=== PATIENT | female | born 1995 | race Caucasian/White ===

== ENCOUNTER 2017-08-24 20:36 | Emergency (ER) | payer BC, SELFPAY ==
[2017-08-24 20:37] VITALS: BP 128/73; PULSE 122; RESP 18; TEMP 37.2; O2SAT 98; BMI 22.0
--- NOTE | 2017-08-24 21:52 | ED.RN ---
PT STATED SHE NO LONGER BELIEVED SHE NEEDED TO BE SEEN IN THE ER FOR HER SYMPTOMS. SHE STATED SHE WOULD FOLLOW UP WITH HER DOCTOR. PT ENCOURAGED TO COME BACK WITH WORSENING SYMPTOMS
== END 2017-08-24 21:55 | disposition left against medical advice (07) ==
LOC: ED 23:13
PROVIDERS: Emergency Provider Emergency Medicine; Family Provider Pediatrics
DX: R69 Illness, unspecified (principal)

== ENCOUNTER 2019-03-06 22:32 | Emergency (ER) | payer MEDICAID, SELFPAY ==
[2019-03-06 22:33] VITALS: BP 158/80; PULSE 84; RESP 16; TEMP 36.6; O2SAT 100; BMI 27.5
--- NOTE | 2019-03-06 22:46 | ED.VISSUMM ---
- ER Visit Summary Date of Service: 03/06/19 Chief Complaint: Bilateral wrist pain History of Present Illness: The patient is a 23 F who has bilateral wrist pain. She has had this for 2 weeks. Is worse when she wakes up in the morning. 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 She does get some paresthesias when she moves her wrist certain ways. Denies any trauma or falls. No history of carpal tunnel syndrome. Physical Examination: Vital signs reviewed. Bilateral wrist exam reveals no tenderness. She has full range of motion. She does have a positive Phalen's and Tinel sign. No sensory deficits at this time. Test Results: None performed Emergency Department Course and Treatment: Patient appears to have carpal tunnel of her bilateral wrist. She will take NSAIDs for pain. I will give her a prescription for bilateral wrist splints to wear at night. She will be given orthopedic follow-up. Treatment Plan: [] Disposition: Discharge Impression: Bilateral carpal tunnel syndrome This note was generated with [employer] dictation software. It may contain incorrect words, spelling, and punctuation that were not noted in review of the chart prior to signing ED Disposition - Plan for ED Patient: Referrals: NOT,DEFINED [Primary Care Provider] -
--- NOTE | 2019-03-06 22:47 | DCINST.ED_ITS ---
ED Disposition - Plan for ED Patient: Disposition: Home or Assisted Living Instructions: What Is Carpal Tunnel Syndrome (CTS)? 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
== END 2019-03-06 23:05 | disposition home or self-care (01) ==
LOC: ED 22:58
PROVIDERS: Emergency Provider Emergency Medicine; Family Provider Family Medicine; PCP Family Medicine
DX: G56.03 Carpal tunnel syndrome, bilateral upper limbs (principal)
CPT/HCPCS: 99282

== ENCOUNTER 2022-07-14 00:13 | Outpatient (CLI) | payer MEDICAID, SELFPAY ==
[2022-07-14 00:22] VITALS: BMI 36.2
[2022-07-14 00:29] VITALS: BP 113/69; PULSE 86
[2022-07-14 00:30] VITALS: TEMP 37.1
--- NOTE | 2022-07-14 06:25 | OB.TRI.NOTE ---
HPI - General General Date of Admission: 07/14/22 Date of Service: 07/14/22 Chief Complaint: contractions HPI Narrative MONA NARAYAN, is a 26 F who presents complaining of contractions. They increased after she was in the office today. She denies any vaginal bleeding or leaking of fluid. Maternal Data Information Final TOBI: 08/03/22 Gestational age: 37 1/7 [facility] Medical History (Updated 07/14/22 @ 06:[address] Leigha Simpson MD) Anxiety and depression Cardiology follow-up encounter Congenital infundibular pulmonic stenosis Dietary restriction Former smoker Gestational diabetes History of echocardiogram History of irregular heartbeat Wears glasses Home Medications ferrous sulfate 325 mg (65 mg iron) tablet 325 mg PO DAILY 07/05/22 [History Last Taken 07/13/22 09:30] magnesium oxide 420 mg tablet 420 mg PO DAILY 07/05/22 [History Last Taken 07/13/22 09:30] prenat.vits,smita,dso-gqlb-ojzmf 1 tab PO DAILY 07/06/22 [History Last Taken 07/13/22 09:30] pyridoxine (vitamin B6) 50 mg tablet (Vitamin B-6) 50 mg PO DAILY 07/06/22 [History Last Taken 07/13/22 09:30] Allergy/AdvReac Type Severity Reaction Status Date / Time sertraline [From Zoloft] Allergy Unknown Mental Verified 07/14/22 00:25 status change. amoxicillin Allergy Unknown Verified 07/14/22 00:25 Social History (Updated 07/05/22 @ 10:13 by Marielena Mabry) Smoking Status: Former smoker how long ago did patient quit smokin alcohol intake: never substance use type: marijuana NST FHR Rate Baby A Baseline: 145 Variability:: Moderate Accelerations:: 15 x 15 Decelerations:: None NST Reactive:: Yes FHR Category:: Category I Uterine Activity:: irreg ctxs Assessment & Plan (1) 37 weeks gestation of : PLAN: False labor at 37 weeks. Discharge home with routine follow-up or return as needed. (2) False labor after 37 completed weeks of gestation:
== END 2022-07-14 00:56 | disposition home or self-care (01) ==
LOC: WPOUT 00:16 → WP 00:22
PROVIDERS: PCP Family Medicine; Visit Provider Obstetrics & Gynecology
DX: O47.1 False labor at or after 37 completed weeks of gestation (principal); Z3A.37 37 weeks gestation of pregnancy
CPT/HCPCS: 59025; 59050; 99221; G0378